=== PATIENT | male | born 1975 ===

== ENCOUNTER 2025-08-30 06:25 | Day surgery (SDC) | payer OTHER, SELFPAY | END 2025-08-30 13:19 | disposition home or self-care (01) | LOC: GI 06:25 | PROVIDERS: ATTENDING PHYSICIAN Internal Medicine Gastroenterology | DX: Z12.11 Encounter for screening for malignant neoplasm of colon (principal); K64.9 Unspecified hemorrhoids; K57.30 Diverticulosis of large intestine without perforation or abscess without bleeding | CPT/HCPCS: G0121 ==